=== PATIENT | male | born 1940 | race Caucasian/White ===

== ENCOUNTER 2017-07-18 05:52 | Emergency (ER) | payer MEDICARE ==
[~2017-07-18] VITALS: Ht 170.2 cm; Wt 72.7 kg
[~2017-07-18 05:52] MED LIST: AMLO5TAB2 PO; ASPI-973 PO; ATRV10T PO; CLOP75TA3 PO; LOSA25TA21 PO; METO50TA3 PO; OMEG-15 PO; TAMS0.4C29 PO
[2017-07-18 05:56] VITALS: BP 186/94; PULSE 67; RESP 18; O2SAT 96
--- NOTE | 2017-07-18 06:21 | ED.REPORT ---
HPI-Abd Pain M 40 and Over Date of Service Jul 18, 2017 ED Provider: Nathaniel Remy MD The pt is a 77 y/o male w/ a hx of hypercholesterolemia, HTN, and prostate cancer presenting to the ED complaining of abdominal pain onset 0000. The pt also experienced diarrhea yesterday. The pain does not radiate to his back, is described as a pressure and got intense directly after an episode of acid reflux. Denies nausea or vomiting. He also experienced the same symptoms a week ago in [place] and was shown that he had a hiatal hernia after seeing a doctor. He reports eating a regular meal last night. The pt was last hospitalized ten months ago due to prostate cancer. Nursing Notes Stated Complaint: ABDOMINAL PAIN Chief Complaint: Male Abdominal Pain Nursing Notes Reviewed: Yes Allergies: Coded Allergies: lisinopril (Verified Allergy, Severe, chin & lip swelling, 09/16/16) Scheduled Amlodipine (Amlodipine) 5 Mg Tablet 5 MG PO DAILY Aspirin (Aspirin) 81 Mg Tablet 81 MG PO DAILY Atorvastatin (Lipitor) 10 Mg Tab 8 MG PO DAILY Clopidogrel Bisulfate (Plavix) 75 Mg Tablet 75 MG PO DAILY Losartan Potassium (Losartan Potassium) 25 Mg Tablet 25 MG PO DAILY Metoprolol Tartrate (Metoprolol Tartrate) 50 Mg Tablet 50 MG PO DAILY Omeprazole (Omeprazole) 40 Mg Capsule.dr 40 MG PO DAILY Tamsulosin ER (Tamsulosin ER) 0.4 Mg Cap.er.24h 0.4 MG PO BID Miscellaneous Medications [place]-3/Dha/Epa/Fish Oil (Fish Oil 1,400 mg Softgel) 1 Each Capsule.dr 1 EACH PO General Time Seen by MD: 06:05 Chief Complaint Abdominal pain Hx Obtained From: Patient, Spouse Arrived By: Walk-in Sudden in Onset?: Yes Onset Occurred: 1 week ago Symptom Duration: Since onset Recent Healthcare: Recent doctor visit, Recent hospitalization Similar Sx Previous: Yes Past Medical History Past Medical History HTN Hypercholesterolemia 2 cardiac stents Past Surgical History Prostatectomy Eye surgery Vasectomy Smoking History Never Smoker Social History Alcohol Use: Denies alcohol use Drug Use: Denies drug use Ambulatory Status Independent Review of Systems Acid reflux; Denies changes in eating habits; GI: Reports: Abdominal pain, Diarrhea, Denies: Nausea, Vomiting Complete sys rev & neg: except as marked. Physical Exam Initial Vital Signs Vital Signs (First) Date Time Temp Pulse Resp B/P Pulse Ox O2 Delivery O2 Flow Rate FiO2 07/18/17 05:56 36.6 67 18 186/94 96 Room Air Initial VS: Reviewed Head / Eyes: Atraumatic, Normocephalic, PERRL ENT: Mucous membranes moist, Conjunctiva normal, No scleral icterus Neck: Supple, Non-tender, Full range of motion Extremities: Vascular intact, Neuro intact, No swelling, No tenderness Neurologic: Alert, Oriented, Nonfocal Psychiatric: Mood/affect normal, Behavior normal, Normal thought content General/Constitutional: Awake, Alert Respiratory / Chest: Atraumatic, Breath sounds NL, Breath sounds = bilat Cardiovascular: Heart rate NL, Regular rhythm, Heart sounds NL Abdomen: Soft Moderate epigastric tenderness w/ no rebound or guarding Back: Atraumatic, Inspection NL, Full range of motion Interpretation & Diagnostics Lab Results Interpretation Result Diagram: 07/18/17 0615 07/18/17 0615 Test 07/18/17 06:15 07/18/17 08:30 White Blood Count 10.0th/mm3 (3.8-10.1) Red Blood Count 5.01mil/mm3 (4.40-5.80) Hemoglobin 15.4g/dL (13.8-17.2) Hematocrit 46.1% (41.0-50.0) Mean Corpuscular Volume 92.0fL (81-100) Mean Corpuscular Hemoglobin 30.7pg (27.0-35.0) Mean Corpuscular Hemoglobin Concent 33.4% (32.0-37.0) Red Cell Distribution Width 12.7% (12.3-15.4) Platelet Count 279bil/L (150-400) Neutrophils (%) (Auto) 74.2% (40-74) Lymphocytes (%) (Auto) 14.7% (14-46) Monocytes (%) (Auto) 9.8% (4-12) Eosinophils (%) (Auto) 0.8% (0-5) Basophils (%) (Auto) 0.2% (0-3) Sodium Level 140mEq/L (134-144) Potassium Level 4.2mEq/L (3.5-5.2) Chloride Level 105mEq/L (97-108) Carbon Dioxide Level 22mmol/L (18-29) Blood Urea Nitrogen 23mg/dL (8-27) Creatinine 0.63mg/dL (0.76-1.27) Estimat Glomerular Filtration Rate 131mL/min (>59) Glucose Level 120mg/dL (60-99) Calcium Level 9.0mg/dL (8.5-10.1) Magnesium Level 2.1mg/dL (1.6-2.6) Total Bilirubin 0.6mg/dL (0.0-1.2) Aspartate Amino Transf (AST/SGOT) 42U/L (0-50) Alanine Aminotransferase (ALT/SGPT) 107U/L (0-44) Alkaline Phosphatase 150U/L (25-160) Total Protein 7.4g/dL (6.4-8.4) Albumin 4.3g/dL (3.4-5.0) Lipase 23U/L (13-60) Urine Color Straw (YELLOW) Urine Appearance Hazy (CLEAR,HAZY) Urine pH 7.0 (5.0-8.0) Urine Specific [place] 1.010 (1.003-1.035) Urine Protein Negativemg/dL (NEG,TRACE) Urine Glucose (UA) Negativemg/dL (NEGATIVE) Urine Ketones Negativemg/dL (NEGATIVE) Urine Occult Blood Trace (NEGATIVE) Urine Nitrite Negative (NEGATIVE) Urine Bilirubin Negative (NEGATIVE) Urine Urobilinogen Normalmg/dL (NORMAL) Urine Leukocyte Esterase Negative (NEGATIVE) Urine RBC 0-2/hpf (0-2) Urine WBC 0-5/hpf (0-5) Urine Epithelial Cells Occasional/hpf (NONE-MOD) Urine Crystals None seen (NONE SEEN) Urine Bacteria Few/hpf (NONE-FEW) Urine Hyaline Casts None/lpf (NONE) Urine Granular Casts None seen (NONE SEEN) Urine Waxy Casts None seen (NONE SEEN) Urine Red Blood Cell Casts None seen (NONE SEEN) Urine White Blood Cell Casts None seen (NONE SEEN) Urine Mucus None seen (None Seen) Urine Trichomonas None seen (NONE SEEN) Urine Yeast None (NONE SEEN) Urinalysis Comment None Urine Culture Reflexed Not indicated CT Abd / Pelvis Interpretation IMPRESSION: 1. No acute abnormality is appreciated within the abdomen or pelvis. 2. Congenital malrotation of the bowel. No bowel obstruction. 3. Small enhancing lesion within the dome of the liver is not adequately characterized, but may represent a flash filling hemangioma. Please consider contrast enhanced MRI of the liver for better evaluation. 4. Small hiatal hernia. 5. Status post prostatectomy. No lymphadenopathy within the pelvis. 6. Severe degenerative changes of the spine and pelvic joints. Dictated by: Arik Reyes M.D. on 07/18/2017 at 8:43 Approved by: Arik Reyes M.D. on 07/18/2017 at 8:58 Study type: Abdom CT oral contrast Interpretation / Wet Read by: Interpret - Radiologist Re-Eval/Medical Decision Med Decision/Clinical Course 69-year-old male history of hiatal hernia presenting with epigastric pain since earlier today. He had a similar episode one week ago and was seen at a hospital in [place] with a negative workup. Patient reports burping. Epigastric pain. On exam he has mild epigastric tenderness. His labs are unremarkable. There is no leukocytosis. CT abdomen and pelvis shows no acute pathology he does have a hiatal hernia. His pain improved with GI cocktail. Likely gastritis possibly related to hiatal hernia. His abdomen is soft and nontender at discharge. Do not see any emergent cause for his abdominal pain. We will start him on a PPI with Tums as needed and follow up with primary doctor tomorrow. He is advised to return immediately for any new or worsening abdominal pain, nausea vomiting, fevers, any other new or worsening symptoms. Source of Hx: Old records Time of Eval: 10:18 Re-Evaluation/Progress Note: Pt rechecked. Informed pt of plan for treatment. Pt understands and agrees with plan for treatment. F/U instructions and RTER warnings given. All questions addressed. Counseled Regarding: Diagnosis, Lab results, Need for follow-up, When/why to return to ED Discharge & Departure Primary Impression: Generalized abdominal pain Additional Impressions: Hiatal hernia Liver hemangioma Disposition: Home Vital Signs - All Vital Signs Date Time Temp Pulse Resp B/P Pulse Ox O2 Delivery O2 Flow Rate FiO2 07/18/17 10:36 64 14 118/68 99 Room Air 07/18/17 09:22 65 16 136/75 99 Room Air 07/18/17 05:56 36.6 67 18 186/94 96 Room Air )( All Prior VS Reviewed: Yes Condition: Stable Additional Instructions: Thank for you entrusting us with your care today. You were diagnosed with a hiatal hernia, a liver hemangioma and generalized abdominal pain. You can take the Prilosec as scheduled and Tums as needed for the pain. Call your primary care provider for an appointment tomorrow for a possible referral for surgery and to have your liver evaluated by MRI for your liver hemangioma. Please return to the emergency department if you experience any worsening abdominal pain, fevers, nausea, vomiting, blood in your vomit or stool, or any other new or worsening symptoms. I hope you feel better soon. Referrals: Billy Rey MD (PCP) Scribe Attestation Portions of this note were transcribed by Sukhdeep Wilkinson. I, Dr. Remy personally performed the history, physical exam and medical decision-making; I reviewed and confirmed the accuracy of the information in the transcribed note. copies to: Billy Rey MD, Ben M MD Jul 18, 2017 06:21 Sukhdeep Wilkinson Jul 18, 2017 06:41
[2017-07-18] MEDS ORDERED: 0.9% Sodium Chloride 1,000 ML IV ONE (06:27)
[2017-07-18] MEDS ORDERED: Ondansetron 2 mg/mL 2 mL Inj IVPUSH PRN (06:30)
[2017-07-18] MEDS ORDERED: LidocaineVisc 2%:Antacid 1:1 10 mL Syringe PO ONE (06:30)
[2017-07-18 06:47] LABS: BASOPHILS % (AUTO) 0.2 % (0-3); EOSINOPHILS % (AUTO) 0.8 % (0-5); MONOCYTES % (AUTO) 9.8 % (4-12); Mean Corpuscular Hemoglobin 30.7 pg (27.0-35.0); NEUTROPHILS % (AUTO) 74.2 % (40-74); Platelet Count 279 bil/L (150-400)
[2017-07-18 07:26] LABS: Magnesium 2.1 mg/dL (1.6-2.6)
[2017-07-18 09:00] LABS: APPEARANCE,URINE HAZY (CLEAR,HAZY); COLOR,URINE STRAW (YELLOW); OCCULT BLOOD,URINE TRACE (NEGATIVE); UROBILINOGEN,URINE NORMAL (NORMAL)
[2017-07-18 09:22] VITALS: BP 136/75; PULSE 65; RESP 16; O2SAT 99
--- NOTE | 2017-07-18 10:00 | DRSVH ---
PROCEDURE: CT ABDOMEN AND PELVIS WITH CONTRAST ([id number]) INDICATIONS: Abdominal pain TECHNIQUE: After the administration of oral and intravenous contrast, 5 mm thick sections acquired from the diap hragms to the symphysis. 5 mm thick coronal and sagittal reformats were performed. For radiation do se reduction, the following was used: automated exposure control, adjustment of mA and/or kV accordi ng to patient size. COMPARISON: [facility], MR, MR PELVIS W&WO CON, 08/17/2016, 7:12. FINDINGS: Image quality: Diagnostic. ABDOMEN: Lung bases: Mild scar versus atelectasis is present within the left posterior costophrenic angle. Th e heart is normal in size without a pericardial effusion. Coronary artery atherosclerosis is present . Solid organs: Within the posterior segment of the right hepatic lobe above the level of the portal ve in within the region of the dome of the liver there is an 8mm focus of intense arterial enhancement ( image 8, series 2). No definite additional areas of hepatic enhancement are evident. The gallbladde r is within normal limits without evidence of inflammation. There is no significant dilatation of th e common bile duct. The spleen, adrenals, and pancreas are within normal limits. The kidneys are no rmal in size. There is no hydronephrosis. Peritoneum and bowel: There is a small hiatal hernia. The stomach, duodenum, and remainder of the sm all bowel loops are otherwise within normal limits. There is mild distal colonic diverticulosis with out surrounding inflammation to suggest acute diverticulitis. Unusual positioning of the colon and s mall bowel is identified, suggesting prior congenital malrotation with the colon located within the l eft hemiabdomen and the small bowel located within the right hemiabdomen. The appendix is located wi thin the left hemiabdomen and is normal in size and appearance (image 38, series 2 and image 20, seri es 4). There is no bowel obstruction. No free fluid, loculated fluid collection or free air is iden tified. Nodes and vessels: No retroperitoneal or mesenteric adenopathy. Aorta and inferior vena cava are no rmal in caliber. There is moderate aortic atherosclerosis. There also is atherosclerotic change inv olving the iliac arteries. Bones: No acute fracture suspicious osseous lesion is evident. There are severe degenerative changes of the imaged thoracolumbar spine with a moderate levoconvex curvature of the lumbar spine. PELVIS: Genitourinary: Bladder wall thickness is normal. Mild scarring overlying the urinary bladder is pre sent. The prostate appears to be surgically excised. Miscellaneous: No inguinal hernias or adenopathy. No free fluid, loculated fluid collection or free air is evident. Bones: No suspicious bony lesions. Moderate degenerative changes of the bilateral hips are present. There are mild degenerative changes of the sacroiliac joints. There also are at least mild degener ative changes of the pubis symphysis. No acute fractures are identified. IMPRESSION: 1. No acute abnormality is appreciated within the abdomen or pelvis. 2. Congenital malrotation of the bowel. No bowel obstruction. 3. Small enhancing lesion within the dome of the liver is not adequately characterized, but may repr esent a flash filling hemangioma. Please consider contrast enhanced MRI of the liver for better eval uation. 4. Small hiatal hernia. 5. Status post prostatectomy. No lymphadenopathy within the pelvis. 6. Severe degenerative changes of the spine and pelvic joints. Dictated by: Arik Reyes M.D. on 07/18/2017 at 8:43 Approved by: Arik Reyes M.D. on 07/18/2017 at 8:58
[2017-07-18] MEDS ORDERED: OMEP40CA36 PO (10:21)
[2017-07-18 10:36] VITALS: BP 118/68; PULSE 64; RESP 14; O2SAT 99
== END 2017-07-18 10:37 | disposition home or self-care (01) ==
LOC: SED 05:52
DX: R10.84 Generalized abdominal pain (principal); K44.9 Diaphragmatic hernia without obstruction or gangrene; D18.03 Hemangioma of intra-abdominal structures; I10 Essential (primary) hypertension; E78.00 Pure hypercholesterolemia, unspecified; Z88.8 Allergy status to other drugs, medicaments and biological substances; Z79.82 Long term (current) use of aspirin; Z85.46 Personal history of malignant neoplasm of prostate
CPT/HCPCS: 36415; 74177; 80053; 81000; 83690; 83735; 85025; 96361; 96374; 96375; 99285; J2270; J2405; J7030; Q9967

== ENCOUNTER → 2017-08-22 | Day surgery (SDC) | payer MEDICARE ==
[~2017-08-22] VITALS: Ht 170.2 cm; Wt 72.6 kg
[~2017-08-22] MED LIST changes: +0.9% Sodium Chloride 1,000 ML IV SCH; +OMEP40CA36 PO; +Sodium Chloride LOK Flush 10 mL Syringe IV PRN; +fentaNYL-PF 50 mCg/mL 2 mL Inj IVPUSH PRN
[2017-08-22 08:16] VITALS: BP 133/70; PULSE 64; RESP 16; O2SAT 98
[2017-08-22 09:03] VITALS: BP 95/58; PULSE 54; RESP 14; O2SAT 95
[2017-08-22 09:16] VITALS: BP 86/60; PULSE 51; RESP 14; O2SAT 94
[2017-08-22 09:28] VITALS: BP 105/65; PULSE 55; RESP 15; O2SAT 93
--- NOTE | 2017-08-22 09:44 | ENDO ---
[address] [address] ENDOSCOPY PROCEDURE PATIENT: NALDO ASTORGA : 1940 MR#: [id number] ADMIT: 08/22/2017 JOB ID: [id number] DATE OF SERVICE: 08/22/2017 TITLE OF OPERATION: 1. Esophagogastroduodenoscopy with biopsy. 2. Colonoscopy. PREOPERATIVE DIAGNOSIS: Screening for colorectal cancer. POSTOPERATIVE DIAGNOSIS(ES): 1. Mild nonerosive gastritis. 2. Small internal hemorrhoids. 3. Mild sigmoid diverticulosis. ANESTHESIA: 1. Fentanyl 100 mcg. 2. Versed 5 mg IV administered. COMPLICATIONS: None. BLOOD LOSS: Minimal. DESCRIPTION OF PROCEDURE: After risks and benefits explained to the patient, informed consent was obtained. After anesthesia administered, an upper endoscope was inserted, intubated into the esophagus, stomach, and second portion of the duodenum. Mucosa carefully examined. After the procedure, the scope was withdrawn and the procedure terminated. Colonoscope was inserted per rectum and cecum. Mucosa carefully examined. Prep of the patient was excellent. After the procedure was done, the scope withdrawn and the procedure terminated. FINDINGS: Upon inspection of the anus, no masses, hemorrhoids, ulcers, or fissures that were seen. Upon inspection of the esophagus, the esophagus was normal without masses, ulcers, or lesions. Z-line located at 35 cm from incisors. Upon entering the stomach, the stomach was also normal, except for mild nonerosive gastritis. No masses or ulcers were seen. Retroflexion was normal. Duodenal bulb, first and second portion were normal. Biopsies taken at the antrum body and distal esophagus. Upon inspection of the anus, no masses, hemorrhoids, ulcers, or fissures were seen. Throughout the entire examination, there was mild sigmoid diverticulosis. No polyps or masses were seen. Retroflexion showed small internal hemorrhoids. IMPRESSION: 1. Small internal hemorrhoids. 2. Sigmoid diverticulosis. 3. Mild nonerosive gastritis. RECOMMENDATION: 1. Await pathology results. 2. High-fiber diet. 3. Repeat colonoscopy 10 years for colorectal cancer screening.
--- NOTE | 2017-08-23 17:55 | PATH ---
SURGICAL PATHOLOGY Attending Physician:Conrado Jacinto MD CASE STATUS: Signed Out PATIENT NAME: NALDO ASTORGA PID: [id number] : 1940 DATE COLLECTED:08/22/2017 21:52 SPECIMEN: 1: Gastric, Biopsy 2: Gastric, Biopsy 3: Esophagus, Biopsy CLINICAL HISTORY: 1). ANTRUM BIOPSY, RULE OUT H.PYLORI 2). GASTRIC BODY BIOPSY, RULE OUT H.PYLORI 3). DISTAL ESOPHAGUS BIOPSY FINAL DIAGNOSIS: 1. 2. DESIGNATED "ANTRUM," GASTRIC BODY, BIOPSIES: GASTRIC BODY MUCOSA WITH NO DIAGNOSTIC ABNORMALITY. No evidence of Helicobacter organisms on H&E stain. Negative for intestinal metaplasia. Negative for dysplasia and malignancy. 3.DISTAL ESOPAHGUS, BIOPSY: SQUAMOUS EPITHELIUM WITH NO DIAGNOSTIC ABNORMALITY. Intraepithelial eosinophils are not increased. Negative for dysplasia and malignancy. ICD10 R10.13 GROSS DESCRIPTION: The specimen is received in three formalin filled containers labeled with the patient's name. 1). The specimen is labeled "antrum" and consists of a less than 0.1 CM portion of tissue which is entirely submitted in cassette 1A. 2). The specimen is labeled "gastric body" and consists of 3 tiny portions of tissue which aggregate to 0.3 x 0.2 x 0.1 CM. The specimen is entirely submitted in cassette 2A. 3). The specimen is labeled "distal esophagus" and consists of an extremely tiny knee less than 0.1 CM portion of tissue which is entirely submitted in cassette 3A. 08/22/2017DC MICRO DESCRIPTION: See diagnosis. ICD-9 CODES: CPT CODES: 1: 88169 2: 11885 3: 84495 Electronically Signed Out Stanford Varma MD, Ph.D. [facility] Pathology [facility], [place] [address] Technical component performed at [facility], [facility] [address], [place], [address]
== END | disposition home or self-care (01) ==
LOC: END 00:37
PROVIDERS: ATTEND Internal Medicine Gastroenterology
DX: Z12.11 Encounter for screening for malignant neoplasm of colon (principal); Z86.010 Personal history of colon polyps; K57.30 Diverticulosis of large intestine without perforation or abscess without bleeding; K64.8 Other hemorrhoids; K29.70 Gastritis, unspecified, without bleeding; K21.9 Gastro-esophageal reflux disease without esophagitis; I10 Essential (primary) hypertension; I25.10 Atherosclerotic heart disease of native coronary artery without angina pectoris; E78.5 Hyperlipidemia, unspecified; R74.0 Nonspecific elevation of levels of transaminase and lactic acid dehydrogenase [LDH]; Z95.5 Presence of coronary angioplasty implant and graft; Z85.46 Personal history of malignant neoplasm of prostate; Z79.82 Long term (current) use of aspirin
CPT/HCPCS: 43239; 99153; G0105; G0500; J2250; J3010; J7030